=== PATIENT | female | born 1945 | race Caucasian/White ===

== ENCOUNTER → 2016-12-14 | Day surgery (SDC) | payer OTHER ==
[~2016-12-14] MED LIST: ACETAMINOPHEN 325 MG TABLET (FP) PO PRN; BSS (NA/CA/MG/K) BALANCED SALT SOLUTION OPHTH SOLN 15 ML BOTTLE OD ONE; CIPROFLOXACIN 0.3% EYE DROPS 5 ML BOTTLE OD ONE; CIPROFLOXACIN 0.3% EYE DROPS 5 ML BOTTLE ONE; CIPROFLOXACIN HCL 0.3% OPHTH 2.5ML BOTTLE OD ONE; LIDOCAINE 1% P/F 10 MG/ML VIAL INF ONE; LIDOCAINE HCL 2% JELLY (5 ML/TUBE) TP ONE; LIDOCAINE HCL/PF 1% SDV 5ML VIAL ONE; MIDAZOLAM HCL 2 MG/2 ML SINGLE DOSE VIAL ONE; POVIDONE-IODINE 5% OPHTHALMIC PREP 30 ML SOLUTION OD ONE; TETRACAINE 0.5% OPHTH SOLN 2 ML BOTTLE OD ONE; TETRACAINE 0.5% OPHTH SOLN 2 ML BOTTLE ONE
[2016-12-14] MEDS: CIPROFLOXACIN HCL 0.3% OPHTH 2.5ML BOTTLE OP SCH ×3 (08:25→09:25)
[2016-12-14 13:21] VITALS: TEMP 97.9
[2016-12-14 13:23] VITALS: BP 88/57; PULSE 59
--- NOTE | 2016-12-14 16:39 | OP ---
DATE OF OPERATION: 12/14/2016 PROCEDURE: Superficial keratectomy of Salzmann nodules. PREOPERATIVE DIAGNOSIS: Salzmann nodule, right eye POSTOPERATIVE DIAGNOSIS: Salzmann nodule, right eye ANESTHESIA: Topical MAC. COMPLICATIONS: None. DESCRIPTION OF PROCEDURE: Patient was brought into the operating room, correctly identified along with the operative site. She was then prepped and draped in the usual sterile fashion including 5% Betadine solution in the conjunctival sac and an eyelid an drape. An eyelid speculum was then placed into the right eye. The eye was inspected and approximately 270 degrees of a peripheral elevated corneal opacity was noted. Using a 57 blade, the edge was first lifted off the temporal Salzmann's nodule, and slowly peeled without extending into a deeper plane, using a 57 blade as well as the Colibri forceps. This lesion was sent for histopathologic evaluation. Huggins membrane was noted to be smooth, and no further intervention was required there. Attention was then placed to the other opacity. Using the 57 blade again, an edge was raised , and this time, the blunt dissection was carried for the remainder of the lesion, which totaled approximately 6 more clock hours. The lesion was also sent for histopathologic evaluation. Huggins membrane was then polished using the 57 blade. Now this lesion was fully excised and was sent for histopathologic evaluation. At the end of the procedure, the cornea was noted to be clear, without any residual opacity. A collagen shield soaked in ciprofloxacin was placed on the eye, the eye patched, and the patient discharged from the operating room in a stable condition. SARAH JON M.D. [id number] MTDD
--- NOTE | 2016-12-15 13:47 | PATH ---
Surgical Pathology Report Patient Name: LA KIRK [facility]. Rec. #: [id number] /Age/Gender: 1945 (Age: 71) / F Account: [id number] Location: [facility] SUR[facility] Taken: 12/14/2016 Received: 12/14/2016 Reported: 12/15/2016 Physicians: Juan Jose Barksdale M.D. Specimen(s) Received CORNEAL LESIONS RIGHT EYE Clinical History Salzmann's nodules Final Diagnosis CORNEAL LESIONS, RIGHT EYE, EXCISION: CORNEAL TISSUE WITH THINNING OF EPITHELIUM WITH NODULAR DEPOSITION OF SUBEPITHELIAL HYALINIZED MATERIAL CONSISTENT WITH SALZMANN NODULAR DEGENERATION. Comment: Recommend correlation with clinical findings and follow up as clinically indicated. Electronically Signed Torsten Tilley M.D. Gross Description Received in formalin labeled "corneal lesions right eye," are 3 uribe, translucent portions of tissue ranging from 0.2-0.6 cm in greatest dimension. The specimens are submitted in toto in one cassette. /12/14/2016 [facility]12/14/2016
== END | disposition home or self-care (01) ==
LOC: JASU-SURG 07:46
PROVIDERS: ATTEND Ophthalmology
PROC: 08B8XZZ Excision of Right Cornea, External Approach (ICD-10-PCS; principal; 2016-12-14 10:00)
DX: H18.451 Nodular corneal degeneration, right eye (principal)
CPT/HCPCS: 88304-TC

== ENCOUNTER 2017-03-08 07:49 | Day surgery (SDC) | payer OTHER ==
[2017-03-03 14:55] VITALS: BMI 35.8
[2017-03-08] MEDS ORDERED: CIPROFLOXACIN 0.3% EYE DROPS 5 ML BOTTLE ONE (08:04)
[2017-03-08 08:22] VITALS: TEMP 97.5
[2017-03-08] MEDS: CIPROFLOXACIN HCL 0.3% OPHTH 2.5ML BOTTLE OP SCH ×3 (08:25→08:35)
[2017-03-08] MEDS ORDERED: LIDOCAINE HCL 2% JELLY (5 ML/TUBE) TP ONE (10:02)
[2017-03-08] MEDS ORDERED: TOBRA 0.3%/DEXAMETH 0.1% OPHTHALMIC SUSP 2.5 ML BTL ONE (10:17)
[2017-03-08] MEDS ORDERED: MIDAZOLAM HCL 2 MG/2 ML SINGLE DOSE VIAL ONE (10:24)
[2017-03-08] MEDS ORDERED: LIDOCAINE 1%/EPI 1:100000 (50 ML MULTI DOSE VIAL) ONE (10:27)
[2017-03-08] MEDS ORDERED: POVIDONE-IODINE 5% OPHTHALMIC PREP 30 ML SOLUTION OS ONE (10:30)
[2017-03-08] MEDS ORDERED: BSS (NA/CA/MG/K) BALANCED SALT SOLUTION OPHTH SOLN 15 ML BOTTLE OS ONE (10:36)
[2017-03-08] MEDS ORDERED: LIDOCAINE 1%/EPI 1:100000 (50 ML MULTI DOSE VIAL) INF ONE (10:36)
[2017-03-08] MEDS ORDERED: TOBRA 0.3%/DEXAMETH 0.1% OPHTHALMIC SUSP 2.5 ML BTL TP ONE (10:52)
[2017-03-08] MEDS ORDERED: ACETAMINOPHEN 325 MG TABLET (FP) PO ONE (11:20)
[2017-03-08] MEDS ORDERED: ACETAMINOPHEN 325 MG TABLET (FP) ONE (11:22)
[2017-03-08 12:12] VITALS: BP 100/60; PULSE 55
--- NOTE | 2017-03-09 11:09 | OP ---
DATE OF OPERATION: 03/08/2017 PREOPERATIVE DIAGNOSIS: Salzmann nodules, left eye. PROCEDURE: Superficial keratectomy, left eye. ANESTHESIA: Topical MAC. COMPLICATIONS: None. DESCRIPTION OF PROCEDURE: The patient was brought in the operating room and correctly identified. She was then prepped and draped in the usual sterile fashion including 5% Betadine solution in the conjunctival sac and an eyelid drape. An eyelid speculum was then placed into the left eye. The cornea was inspected, and multiple nodules were noted nasal and superior. Topical lidocaine with epinephrine was given, and using a 57-blade, the epithelium was first debrided over the nasal and temporal Salzmann nodule. The nasal Salzmann nodule was noted to be well fixated; so, attention was placed to the temporal one. Very quickly, a plane beneath the Salzmann nodule was found, and the nodule bluntly dissected using the 57-blade as well as forceps. This was entirely removed at the tip of the limbus and sent for histopathologic evaluation. Attention was then placed back to the nasal Salzmann nodules. Two were noted, and using a 15-blade this time, a created, and then, switching to a 57-blade, the nasal Salzmann nodule was also bluntly removed without breaching Huggins membrane and sent for histopathologic evaluation. At the end of the procedure, the Huggins membrane was polished using a 57-blade. There were no further nodules noted. The limbus was inspected to make sure there was no remaining tissue. A collagen shield soaked in TobraDex was then placed on the eye, the eye patched, and the patient discharged from the operating room in a stable condition. SARAH JON M.D. [id number]
--- NOTE | 2017-03-09 15:21 | PATH ---
Surgical Pathology Report Patient Name: LA KIRK [facility]. Rec. #: [id number] /Age/Gender: 1945 (Age: 71) / F Account: [id number] Location: [facility] Taken: 03/08/2017 Received: 03/08/2017 Reported: 03/09/2017 Physicians: Juan Jose Barksdale M.D. Specimen(s) Received A: SALZMANN'S NODULE, NASAL, LEFT EYE B: SALZMANN'S NODULE, TEMPORAL, LEFT EYE Clinical History Salzmann's nodule left eye Final Diagnosis A. SALZMANN'S NODULE NASAL, LEFT EYE, LEFT SUPERFICIAL KERATECTOMY: CORNEA WITH HYALINIZED STROMA, ATTENUATED CASTELLANOS'S LAYER AND ATTENUATED CORNEAL EPITHELIUM CONSISTENT WITH SALZMANN'S NODULE. B. SALZMANN'S NODULE, TEMPORAL, LEFT EYE, EXCISION, LEFT SUPERFICIAL KERATECTOMY: CORNEA WITH HYALINIZED STROMA, ATTENUATED CASTELLANOS'S LAYER AND ATTENUATEDCORNEAL EPITHELIUM CONSISTENT WITH SALZMANN'S NODULE. Electronically Signed Aristides Holley M.D. Gross Description A. Received in formalin labeled "Salzmann nodule, nasal left eye" is a 0.2 cm in greatest dimension clear, irregular portion of soft tissue. The specimen is submitted in toto in one cassette. B. Received in formalin labeled "Salzmann's nodule temporal left eye" is a 0.2 cm in greatest dimension clear, irregular portion of soft tissue. The specimen is submitted in toto in one cassette. /03/08/201703/08/2017
== END 2017-03-08 12:00 | disposition home or self-care (01) ==
LOC: JASU-SURG 07:49
PROVIDERS: ATTEND Ophthalmology
PROC: 08B9XZZ Excision of Left Cornea, External Approach (ICD-10-PCS; principal; 2017-03-08 10:00)
DX: H18.452 Nodular corneal degeneration, left eye (principal)
CPT/HCPCS: 88304-TC